=== PATIENT | male | born 1975 | race Hispanic/Latino ===

== ENCOUNTER 2019-12-15 12:30 | Outpatient (RCR) | payer BC, SELFPAY ==
[2019-11-17 14:05] VITALS: BMI 39.9
== END 2020-02-01 10:28 | disposition home or self-care (01) ==
LOC: ANHWOC 12:30
PROVIDERS: PCP Internal Medicine; Visit Provider Orthopaedic Surgery
DX: T81.49XD Infection following a procedure, other surgical site, subsequent encounter (principal)
CPT/HCPCS: 99211; 99212; A9270; G0463

== ENCOUNTER 2021-01-03 22:15 | Emergency (ER) | payer BC, SELFPAY ==
--- NOTE | ~2021-01-03 | XR_ITS ---
EXAMINATION: XR abdomen obstructive series DATE: 01/04/2021 01:06 INDICATION: Right abdominal pain. TECHNIQUE: Upright and supine views of the abdomen were obtained. COMPARISON: Abdomen radiographs 08/31/2005 FINDINGS: There are no dilated loops of bowel. There is a moderate volume of stool in the colon. No f ree intraperitoneal gas. There are changes of anterior fusion procedure in lumbosacral spine. Epidura l electrodes are noted. A calcification in right pelvis is likely a phlebolith. IMPRESSION: 1. Normal bowel gas pattern. Reviewed, dictated and finalized at location A. OR C SOFTWARE DEVELOPER
[2021-01-03 22:16] VITALS: BP 195/100; PULSE 81; RESP 16; TEMP 36.2; O2SAT 100
[2021-01-03 22:34] LABS: Basophils Absolute Auto 0.1 K/mm3 (0.0-0.1); Eosinophils Absolute Auto 0.2 K/mm3 (0-0.3); Eosinophils Percent Auto 3.1 % (0-4.4); Hematocrit 41.9 % (42.0-52.0); Hemoglobin 13.8 g/dL (14.0-18.0); Immature Granulocyte Absolute 0.01 K/mm3 (0.00-0.031); Immature Granulocyte Percent A 0.2 % (0-0.5); Lymphocytes Absolute Auto 2.41 K/mm3 (0.9-3.2); Lymphocytes Percent Auto 47.3 % (18.3-44.2); Mean Corpuscular HGB Conc 32.9 g/dl (32-36); Mean Corpuscular Hemoglobin 28.6 pg (26-34); Mean Corpuscular Volume 86.9 fl (80-100); Mean Platelet Volume 9.9 fl (7.4-10.4); Monocytes Absolute Auto 0.5 K/mm3 (0.1-0.6); Monocytes Percent Auto 10.6 % (2.6-8.5); Neutrophils Absolute Auto 1.9 K/mm3 (1.3-6.7); Neutrophils Percent Auto 37.8 % (45.5-73.1); Platelet Count Result 248 k/mm3 (150-375); Red Blood Count 4.82 M/mm3 (4.6-6.20); Red Cell Distribution Width 13.2 % (11.5-14.5); White Blood Count 5.1 K/mm3 (4.5-10.0)
[2021-01-03 22:39] LABS: Add Urine Microscopic? NO; Appearance Urine Clear (Clear); Bilirubin Urine Negative (Negative); Blood Urine Negative (Negative); Color Urine Yellow (Yellow); Glucose Urine UA Negative (Negative); Ketones Urine Negative (Negative); Leukocyte Esterase Ur Negative LEU/UL (Negative); Nitrate Urine Negative (Negative); Protein Urine Negative (Negative); Specific Grav Ur 1.016 (1.001-1.035); Urobilinogen Urine Negative mg/dL (<2.0)
[2021-01-03 22:48] LABS: Alanine Aminotransferase 38 U/L (4-50); Albumin Level 4.4 g/dL (3.5-5.1); Alkaline Phosphatase 96 U/L (38-126); Anion Gap 6 mmol/L (8-16); Aspartate Amino Transferase 39 U/L (17-59); Bilirubin,Total 0.3 mg/dL (0.2-1.3); Blood Urea Nitrogen 14 mg/dL (9-20); Calcium 9.5 mg/dL (8.4-10.2); Carbon Dioxide 30 mmol/L (22-30); Chloride 104 mmol/L (98-107); Estimated Glomerular Filt Rate > 60; Glucose 122 mg/dL (75-110); Lipase 194 U/L (23-300); Potassium 4.3 mmol/L (3.4-5.0); Sodium 140 mmol/L (137-145)
[2021-01-04 00:26] VITALS: BP 127/78; PULSE 85; RESP 18; O2SAT 95
--- NOTE | 2021-01-04 01:32 | ED.ABDPAIN ---
HPI - Abdominal Pain General Chief Complaint: Abdominal Pain Stated Complaint: right abd pain Time Seen by Provider: 01/04/21 00:33 History of Present Illness HPI narrative: Patient is a 45-year-old male who presents ER with abdominal pain. Ongoing for last 3 days mainly in the evenings. The last 3 to 4 hours. Tonight it was associated with some nausea and vomiting. Unsure if it is associate with food. Denies fevers or chills or sweats. Patient is on chronic narcotic pain medications for chronic pain. He takes Lyrica and oxycodone. He has an implanted spinal stimulator. Reports issues with constipation in the past but this feels different. Pain seems to be in the right upper quadrant. It radiated into his chest. Cannot describe the quality. Related Data Home Medications Medication Instructions Recorded Confirmed esomeprazole magnesium 20 mg 40 mg PO DAILY 09/17/19 10/25/20 capsule,delayed release amitriptyline 25 mg tablet 50 mg PO HS 09/27/19 10/25/20 cyclobenzaprine 10 mg tablet 10 mg PO BID PRN tablet 09/27/19 10/25/20 pregabalin 150 mg capsule 150 mg PO BID 09/27/19 10/25/20 oxycodone 10 mg tablet 5 mg PO TID tablet 10/25/20 10/25/20 Allergies Allergy/AdvReac Type Severity Reaction Status Date / Time pravastatin Allergy Severe KIDNEY Verified 01/04/21 00:29 FAILURE Bjqntec-Vaz-Hzv Reductase Allergy Severe KIDNEY Verified 01/04/21 00:29 Inhibitor FAILURE Review of Systems Review of Systems: All systems reviewed & are unremarkable except as noted in HPI and below Constitutional: Constitutional: Denies chills, Denies fever(s) and Denies weakness ENT: Denies nasal congestion and Denies sore throat Cardiovascular: Cardiovascular: Denies chest pain, Denies rapid heart rate and Denies radiating jaw, neck or arm pain Gastrointestinal: Gastrointestinal: Reports abdominal pain, Reports constipation, Reports nausea and Reports vomiting [facility] Past Medical History Medical History (Updated 01/04/21 @ 01:34 by Setphan Rosario MD) Acute renal failure history of in 2017 due to dehydration and pravastatin. Resolved Anxiety Bronchitis Chronic prescription opiate use CTS (carpal tunnel syndrome) GERD (gastroesophageal reflux disease) High blood pressure Hyperlipidemia Palpitations Shoulder pain Spinal cord stimulator status Trial: 01/2017 Implant: 06/2017 Surgical History Surgical History H/O bone graft H/O carpal tunnel repair H/O hernia repair 09/30/2018 H/O spinal fusion History of appendectomy History of gastric bypass History of total knee arthroplasty Status post total shoulder arthroplasty Family History Family History Father Cerebrovascular accident Family history of diabetes mellitus in first degree relative Acute myocardial infarction Hypertension Family history of kidney disease Family history of coronary artery disease Diabetes mellitus Renal disease Sibling Family history of diabetes mellitus in first degree relative Mother Patient's mother is in good health, Onset Age: 62 Grandparent Family history of malignant neoplasm Son Asthma Other Family history of arthritis Family history of cardiovascular disease Social History Social History Social History: Patient does not currently drink or smoke. He denies any drug use. He is disabled due to his back pain. 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 He is independent Smoking status: Never smoker Alcohol intake: never Substance use: never Gender identity (if verbalized by the patient): Male Spiritual care concerns: No Agree to blood products: Yes Exam Narrative: Exam Narrative: GENERAL: Well-appearing, well-nourished, and in no acute distress. HEAD: Normocephalic, atraumatic. ENT: Mucous m
[2021-01-04 01:58] VITALS: BP 124/82; PULSE 81; RESP 16; O2SAT 95
== END 2021-01-04 01:59 | disposition home or self-care (01) ==
PROVIDERS: Emergency Provider Emergency Medicine; PCP Internal Medicine
DX: K59.00 Constipation, unspecified (principal); F41.9 Anxiety disorder, unspecified; K21.9 Gastro-esophageal reflux disease without esophagitis; I10 Essential (primary) hypertension; E78.5 Hyperlipidemia, unspecified; Z98.1 Arthrodesis status; Z98.84 Bariatric surgery status
CPT/HCPCS: 36415; 74019; 80053; 81003; 83690; 85025; 99283

== ENCOUNTER 2021-01-10 06:52 | Outpatient (CLI) | payer BC, SELFPAY ==
--- NOTE | ~2021-01-10 | US_ITS ---
EXAMINATION: US right upper quadrant DATE: 01/10/2021 07:32 INDICATION: Right upper quadrant pain TECHNIQUE: Multiple grayscale and Doppler ultrasound images of the abdomen were obtained. COMPARISON: 06/12/2016 FINDINGS: Bowel gas obscures visualization of the pancreas. The visualized portions of the pancreas a re unremarkable. The liver demonstrates increased echogenicity, heterogenous echotexture, and decreas ed through transmission. No surface nodularity. Normal hepatopetal flow in the main portal vein. Slud ge is present in the gallbladder. There is no gallbladder wall thickening or pericholecystic fluid. T he normal common bile duct measures 4 mm. Sonographic Mckeon sign is positive. IMPRESSION: 1. Gallbladder sludge and positive sonographic Mckeon sign without additional features of acute paulino cystitis. Consider nuclear hepatobiliary scan if there is high clinical suspicion. 2. Diffuse hepatic steatosis. Reviewed, dictated and finalized at location A. TING ROLLER HANDLER IMPRESSION: 1. Gallbladder sludge and positive sonographic Mckeon sign without additional f eatures of acute cholecystitis. Consider nuclear hepatobiliary scan if there is high clinical suspicion. 2. Diffuse hepatic steatosis.
== END 2021-01-10 06:53 | disposition home or self-care (01) ==
PROVIDERS: PCP Internal Medicine; Visit Provider Clinical Nurse Specialist
DX: R10.11 Right upper quadrant pain (principal); K76.0 Fatty (change of) liver, not elsewhere classified
CPT/HCPCS: 76705

== ENCOUNTER 2021-01-11 11:49 | Outpatient (CLI) | payer BC, SELFPAY ==
--- NOTE | ~2021-01-11 | NM_ITS ---
EXAMINATION: NM hepatobiliary wo pharm DATE: 01/11/2021 15:33 INTERNAL CONTROL CONSULTANT INDICATION: Right upper quadrant pain TECHNIQUE: 4.8 millicuries Choletec was administered intravenously. Scintigraphic images of the abdo men were obtained for one hour. As the gallbladder was not seen at one hour, four hour delayed image s were obtained. Gallbladder ejection fraction could not be calculated by the technologist since the gallbladder was not seen by a one hour and cholecystokinin was not administered. COMPARISON: 06/19/2016 FINDINGS: There is homogeneous tracer uptake by the liver. Common bile duct activity is seen at 15 m inutes. There is radiotracer activity in the small bowel loops by 15 minutes. Gallbladder activity wa s not seen by one hour. As the gallbladder was not seen by one hour and therefore cholecystokinin was not administered, the gallbladder ejection fraction could not be calculated. IMPRESSION: 1. Delayed visualization of the gallbladder at four hours after initial radiotracer administration, consistent with chronic cholecystitis. Correlate with patient's symptoms. The common bile duct is p atent. 2. As the gallbladder was not seen by one hour and therefore cholecystokinin was not administered, t he gallbladder ejection fraction could not be calculated. Reviewed, dictated and finalized at location A. RNAL CONTROL CONSULTANT IMPRESSION: 1. Delayed visualization of the gallbladder at four hours after initial radiot racer administration, consistent with chronic cholecystitis. Correlate with pa tient's symptoms. The common bile duct is patent. 2. As the gallbladder was not seen by one hour and therefore cholecystokinin w as not administered, the gallbladder ejection fraction could not be calculated.
== END 2021-01-11 11:50 | disposition home or self-care (01) ==
PROVIDERS: PCP Internal Medicine; Visit Provider Internal Medicine
DX: R10.11 Right upper quadrant pain (principal)
CPT/HCPCS: 78226; A9537

== ENCOUNTER 2021-02-02 09:55 | Outpatient (CLI) | payer BC, SELFPAY ==
--- NOTE | 2021-02-02 11:14 | ECG_ITS ---
Measurements Intervals [place] Rate: 75 P: 49 FL: 164 QRS: 11 QRSD: 112 T: 18 QT: 363 QTc: 407 Interpretive Statements SINUS RHYTHM INTRAVENTRICULAR CONDUCTION DELAY DELAYED PRECORDIAL R/S TRANSITION INFERIOR INFARCT, AGE INDETERMINATE ABNORMAL ECG Electronically Signed On 02-02-2021 12:11:09 CDT by Gian Lucero D.O.
[2021-02-02 11:46] LABS: Alanine Aminotransferase 42 U/L (4-50); Albumin Level 4.4 g/dL (3.5-5.1); Alkaline Phosphatase 74 U/L (38-126); Amylase 75 U/L (30-110); Aspartate Amino Transferase 42 U/L (17-59); Bilirubin,Total 0.2 mg/dL (0.2-1.3); Lipase 120 U/L (23-300)
== END 2021-02-02 09:56 | disposition home or self-care (01) ==
LOC: ANHSURGERY 09:57
PROVIDERS: PCP Internal Medicine; Visit Provider Surgery
DX: K80.10 Calculus of gallbladder with chronic cholecystitis without obstruction (principal); I10 Essential (primary) hypertension; R94.31 Abnormal electrocardiogram [ECG] [EKG]
CPT/HCPCS: 36415; 80076; 82150; 83690; 86850; 86900; 86901; 93005

== ENCOUNTER → 2021-02-05 00:13 | Outpatient (CLI) | payer BC, SELFPAY ==
[2021-02-05 19:29] LABS: SARS-CoV-2 RNA PCR Negative
== END ==
PROVIDERS: PCP Internal Medicine; Visit Provider Surgery
DX: Z01.812 Encounter for preprocedural laboratory examination (principal); Z20.822 Contact with and (suspected) exposure to COVID-19
CPT/HCPCS: C9803; U0003; U0005

== ENCOUNTER 2021-02-08 01:33 | Day surgery (SDC) | payer BC, SELFPAY ==
[2021-02-02 10:18] VITALS: BP 155/85; PULSE 83; RESP 16; TEMP 37.3; O2SAT 97; BMI 41.5
--- NOTE | 2021-02-02 11:14 | PC.NURSE ---
[id number] FOR SIGNING OF SURGICAL CONSENT AND BLOOD CONSENT. PT GIVEN OPPORTUNITY FOR QUESTIONS RE: CONSENT, PMH AND PRE-OP INSTRUCTIONS. NO FURTHER QUESTIONS RECEIVED. PT'S PRESENT FOR INTERVIEW, SHE SPEAKS FLUENT INDONESIAN AND ALSO HAS NO FURTHER QUESTIONS.
[2021-02-08] VITALS (9 sets, daily range): BP systolic 116–154; BP diastolic 66–95; PULSE 76–93; RESP 12–18; TEMP 36–36.4; O2SAT 97–100
--- NOTE | 2021-02-08 09:29 | WPDHPUPDATE1 ---
History and Physical Update Update Date/Time: 02/08/21 09:29 History and Physical has been reviewed, including an updated exam of the patient. There are NO changes in the patient's condition. Risks, benefits, and alternatives have been discussed and questions answered. Patient agrees to proceed with procedure.
[2021-02-08] MEDS: LACTATED RINGERS 1,000 ML 30 ML IV CONT ×2 (10:16→11:57)
[2021-02-08] MEDS: KETOROLAC 15 MG/ML VIAL (*BKC) IV PUSH (10:16)
[2021-02-08] MEDS: ACETAMINOPHEN 500 MG TABLET 1000 MG PO (10:16)
--- NOTE | 2021-02-08 10:18 | WPDANESEPPF ---
Anes - Initial Pre Proc Eval Procedure: Operation Date: 02/08/21 11:30 Proposed Procedures p Laparoscopic Cholecystectomy - Kolton Jara MD Date/Time: 02/08/21 10:18 Surgeon: Kolton Jara MD Pre Op Diagnosis: chronic cholecystitis with stones Patient Data Age: 45 Gender: M Height: 5 ft 9 in Weight: 127.7 kg Last Vital Signs Temp 37.3 C 02/02/21 10:18 Pulse 83 02/02/21 10:18 Resp 16 02/02/21 10:18 BP 155/85 H 02/02/21 10:18 Pulse Ox 97 02/02/21 10:18 Allergies Allergy/AdvReac Type Severity Reaction Status Date / Time pravastatin Allergy Severe KIDNEY Verified 02/02/21 10:05 FAILURE Cuhmnpl-Fbt-Rej Reductase Allergy Severe KIDNEY Verified 02/02/21 10:05 Inhibitor FAILURE Home Medications Medication Instructions Recorded Confirmed Type cyclobenzaprine 10 mg tablet 10 mg PO TID PRN tablet 09/27/19 02/02/21 History pregabalin 150 mg capsule 150 mg PO BID 09/27/19 02/02/21 History oxycodone 10 mg tablet 10 mg PO TID tablet 10/25/20 02/02/21 History esomeprazole magnesium 40 mg 40 mg PO DAILY #90 cap 11/22/20 02/02/21 Rx capsule,delayed release buspirone 10 mg tablet 10 mg PO BID #180 tablet 12/12/20 02/02/21 Rx amitriptyline 50 mg PO HS 02/02/21 02/02/21 History lisinopril 40 mg PO QAM 02/02/21 02/02/21 History naldemedine [Symproic] 0.2 mg PO DAILY 02/02/21 02/02/21 History polyethylene glycol 3350 [Miralax] 17 g PO DAILY PRN 02/02/21 02/02/21 History Patient hx anesthesia problems: none Family hx anesthesia problems: none PMFSH Past Medical History Medical History Acute renal failure history of in 2017 due to dehydration and pravastatin. Resolved Anxiety Bronchitis Chronic prescription opiate use CTS (carpal tunnel syndrome) GERD (gastroesophageal reflux disease) High blood pressure Hyperlipidemia Palpitations Shoulder pain Spinal cord stimulator status Trial: 01/2017 Implant: 06/2017 Surgical History Surgical History H/O bone graft H/O carpal tunnel repair H/O hernia repair 09/30/2018 H/O spinal fusion History of appendectomy History of gastric bypass History of total knee arthroplasty S/P insertion of spinal cord stimulator February 2017 Status post total shoulder arthroplasty Family History Family History Father Cerebrovascular accident Family history of diabetes mellitus in first degree relative Acute myocardial infarction Hypertension Family history of kidney disease Family history of coronary artery disease Diabetes mellitus Renal disease Sibling Family history of diabetes mellitus in first degree relative Mother Patient's mother is in good health, Onset Age: 62 Grandparent Family history of malignant neoplasm Son Asthma Other Family history of arthritis Family history of cardiovascular disease Social History Social History Social History: Patient does not currently drink or smoke. He denies any drug use. He is disabled due to his back pain. 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 He is independent Smoking status: Never smoker Alcohol intake: never Alcohol use details: DRANK ALCOHOL IN PAST, STOPPED 2009 Substance use: never Living arrangements: with family Additional living arrangements comments: WITH AND CHILDREN Gender identity (if verbalized by the patient): Male Spiritual care concerns: No Agree to blood products: Yes Anes - Eval Final PreProcedure Day of Procedure 02/08/21 10:18 Patient weight: morbidly obese Heart: regular rate and rhythm Lungs: clear to auscultation Airway: Mallampati scale class II Neurological: alert and oriented Last oral intake: >/= 8 hours ASA classification: III Emergent
[2021-02-08] MEDS: ceFAZolin 2 GM/D5W 50 ML 2 GM/50 ML BAG IVPB (10:36)
[2021-02-08] MEDS: BUPIVACAINE/EPINEPHRINE 0.5% 30 ML VIAL INFILTRATE (11:15)
--- NOTE | 2021-02-08 11:49 | PM.PROC ---
Procedure Note - Detailed Date of procedure: 02/08/21 Pre-op diagnosis: chronic cholecystitis Chronic cholecystitis Post-op diagnosis: same Procedure performed: Laparoscopic cholecystectomy Description of procedure: The patient was taken to surgery and induced into general anesthesia. The abdomen was prepped and draped. Trocars were placed in the usual fashion using 0.5% Marcaine with epinephrine and applied Medical optical trocars. A 5 millimeter camera was used. The gallbladder was decompressed with a laparoscopic aspirator. Very thickened bile was present in the gallbladder. The cholecystotomy was closed with a Vicryl endo-loop. The gallbladder was retracted anterosuperiorly. Adhesions to the gallbladder were taken down so that the cholecystohepatic triangle was exposed. Traction was placed on the infundibulum. The patient has hepatic steatosis and I was unable to retract the gallbladder anterosuperiorly to any significant extent. We placed a 5th trocar in the left mid abdomen. This was another 5 mm port. A laparoscopic Kittner was placed here to retract the duodenum posteriorly and allow better exposure of the cholecystohepatic triangle. The cystic duct and cystic artery were dissected out very clearly. The gallbladder was dissected off the liver at its lower 3rd. Critical view was achieved. We securely clipped and divided the cystic duct and cystic artery. The gallbladder was then further retracted so that the peritoneal attachments to the liver could be divided. Near the fundus of the gallbladder, the gallbladder was significantly intrahepatic and during the dissection the gallbladder was entered. Dark bile came out but was suctioned away quickly. The gallbladder was decompressed further with the suction. We then continued on with the dissection of the fundus of the gallbladder from the liver. No bleeding occurred during this dissection. Once the gallbladder was freed entirely, it was placed in an Endo-Catch bag and retrieved through the 10 11 epigastric trocar site. The epigastric trocar was then replaced. We reviewed the right upper quadrant. It was irrigated and suctioned. This process was repeated several times until the irrigant all looked quite clear with no evidence of bile staining. All looked good with no evidence of bleeding or bile leakage. We evacuated CO2 and removed the trocar sleeves. The fascia at the epigastric trocar site was closed with 0 Vicryl suture. Skin wounds were closed with subcuticular 4 O Monocryl skin suture. The wounds were dressed with Exofin surgical adhesive. Patient was awakened and taken to recovery in good condition. Sponge and needle counts were correct x2. Anesthesia: GETA and local (0.5% Marcaine with epinephrine) Surgeon: Kolton Jara MD [facility] Counselor: Chanda YI Estimated blood loss (mL): 5 Drains: No Packing: No Pathology: yes (Gallbladder) Complications: None Condition: stable Disposition: PACU Findings: Chronic inflammation with very thickened bile. No Gallstones were noted. No biliary ductal dilatation. Hepatic steatosis was evident.
== END 2021-02-08 13:57 | disposition home or self-care (01) ==
PROVIDERS: PCP Internal Medicine; Visit Provider Surgery
PROC: 0FT44ZZ Resection of Gallbladder, Percutaneous Endoscopic Approach (ICD-10-PCS; CPT 47562; principal; 2021-02-08 11:30)
DX: K81.1 Chronic cholecystitis (principal); I10 Essential (primary) hypertension; E78.5 Hyperlipidemia, unspecified; K21.9 Gastro-esophageal reflux disease without esophagitis; F41.9 Anxiety disorder, unspecified; Z79.891 Long term (current) use of opiate analgesic; Z98.1 Arthrodesis status; Z98.84 Bariatric surgery status; E66.01 Morbid (severe) obesity due to excess calories; Z68.39 Body mass index [BMI] 39.0-39.9, adult
CPT/HCPCS: 47562; 88304; A9270; C1713; J0330; J0690; J1100; J1170; J1885; J2250; J2405; J2704; J2710; J3010; J7120

== ENCOUNTER 2021-09-04 09:10 | Outpatient (CLI) | payer BC, SELFPAY ==
--- NOTE | 2021-09-04 11:30 | NEURO_ITS ---
Impression: # Complains of 3rd to 5th finger numbness. # No Carpal Tunnel Syndrome. # No ulnar neuropathy. # Normal nerve conduction study. # Normal needle/EMG exam. Nerve Conduction Studies Anti Sensory Summary Table Stim Site NR Peak (ms) P-T Amp (?V) Site1 Site2 Delta-P (ms) Dist (cm) Dariel (m/s) Left Median Anti Sensory (2-3nd Digit) Wrist 2.9 45.9 Wrist 2-3nd Digit 2.9 14.0 48 Wrist 2.8 54.0 Wrist 2-3nd Digit 2.9 14.0 48 Right Median Anti Sensory (2-3nd Digit) Wrist 3.0 46.7 Wrist 2-3nd Digit 3.0 14.0 47 Wrist 3.1 49.3 Wrist 2-3nd Digit 3.0 14.0 47 Left Radial Anti Sensory (Base 1st Digit) Wrist 1.9 27.9 Wrist Base 1st Digit 1.9 0.0 Right Radial Anti Sensory (Base 1st Digit) Wrist 2.4 17.1 Wrist Base 1st Digit 2.4 0.0 Left Ulnar Anti Sensory (5th Digit) Wrist 2.7 46.0 Wrist 5th Digit 2.7 14.0 52 Right Ulnar Anti Sensory (5th Digit) Wrist 2.8 77.7 Wrist 5th Digit 2.8 14.0 50 Motor Summary Table Stim Site NR Onset (ms) O-P Amp (mV) Site1 Site2 Delta-0 (ms) Dist (cm) Dariel (m/s) Left Median Motor (Abd Poll Brev) Wrist 2.7 3.5 Elbow Wrist 5.7 31.0 54 Elbow 8.4 2.5 Right Median Motor (Abd Poll Brev) Wrist 3.0 7.7 Elbow Wrist 5.5 30.0 55 Elbow 8.5 7.2 Left Ulnar Motor (Abd Dig Minimi) Wrist 3.0 7.4 A Elbow Wrist 5.7 31.0 54 A Elbow 8.7 5.5 Right Ulnar Motor (Abd Dig Minimi) Wrist 3.0 8.4 A Elbow Wrist 5.4 30.0 56 A Elbow 8.4 7.6 F Wave Studies NR F-Lat (ms) L-R F-Lat (ms) Left Median (Mrkrs) (Abd Poll Brev) 31.09 1.02 Right Median (Mrkrs) (Abd Poll Brev) 30.08 1.02 Left Ulnar (Mrkrs) (Abd Dig Min) 30.94 0.46 Right Ulnar (Mrkrs) (Abd Dig Min) 31.41 0.46 EMG Side Muscle Nerve Root Ins Act Fibs Amp Dur Recrt Comment Right 1stDorInt Ulnar C8-T1 Nml Nml Nml Nml Nml Right Ext Indicis Radial (Post Int) C7-8 Nml Nml Nml Nml Nml Right Ext Digitorum Radial (Post Int) C7-8 Nml Nml Nml Nml Nml Right BrachioRad Radial C5-6 Nml Nml Nml Nml Nml Right PronatorTeres Median C6-7 Nml Nml Nml Nml Nml Right Abd Poll Brev Median C8-T1 Nml Nml Nml Nml Nml Left 1stDorInt Ulnar C8-T1 Nml Nml Nml Nml Nml Left Ext Indicis Radial (Post Int) C7-8 Nml Nml Nml Nml Nml Left Ext Digitorum Radial (Post Int) C7-8 Nml Nml Nml Nml Nml Left BrachioRad Radial C5-6 Nml Nml Nml Nml Nml Left PronatorTeres Median C6-7 Nml Nml Nml Nml Nml Left Abd Poll Brev Median C8-T1 Nml Nml Nml Nml Nml MTDD
== END 2021-09-04 09:11 | disposition home or self-care (01) ==
LOC: ANHNEURO 09:12
PROVIDERS: PCP Internal Medicine; Visit Provider Nurse Practitioner
DX: G56.20 Lesion of ulnar nerve, unspecified upper limb (principal)
CPT/HCPCS: 95886; 95911

== ENCOUNTER 2022-12-18 12:11 | Emergency (ER) | payer BC, SELFPAY ==
[2022-12-18 12:21] VITALS: BP 123/81; PULSE 84; RESP 16; TEMP 36.8; O2SAT 99
--- NOTE | 2022-12-18 12:35 | ED.EAR ---
HPI - Ear Problem General Chief complaint: Ear Stated complaint: Right Earb Irritation Time Seen by Provider: 12/18/22 12:35 Source: patient Mode of arrival: ambulatory Limitations: no limitations History of Present Illness HPI Narrative: 47-year-old male presents with complaint of decreased hearing to right ear. States that this started last week while he was on his cruise. States that of some water got to his ear, he expressed pain for approximately 2 hours. Pain resolved and that he just could not hear. History of tubes to TMs to help with pressure when flying. He is unsure if tubes are still in place. He has an appointment with his ENT specialist in 1 month. Afebrile. All systems reviewed and negative except as noted above. Related Data Home Medications Medication Instructions Recorded Confirmed cyclobenzaprine 10 mg tablet 10 mg PO TID PRN Spasms 09/27/19 12/18/22 pregabalin 150 mg capsule (Lyrica) 150 mg PO BID 09/27/19 12/18/22 amitriptyline 50 mg tablet 50 mg PO HS 02/02/21 12/18/22 oxycodone 10 mg tablet 10 mg PO TID 07/02/21 12/18/22 venlafaxine 37.5 mg 37.5 mg PO DAILY 12/18/22 12/18/22 capsule,extended release 24 hr Allergies Allergy/AdvReac Type Severity Reaction Status Date / Time pravastatin Allergy Severe KIDNEY Verified 12/18/22 12:20 FAILURE Ohnxgew-IDM-BvC Reductase Allergy Severe KIDNEY Verified 12/18/22 12:20 Inhibitor FAILURE [Jvapkya-Hme-Egz Reductase Inhibitor] Review of Systems Review of Systems: CONSTITUTIONAL: Denies fever, chills, or sweats. EYES: Denies visual changes, redness, or discharge. ENT: Denies rhinorrhea, congestion, sore throat, or otalgia. Reports decreased hearing right ear. CARDIOVASCULAR: Denies chest pain, palpitations, or edema. RESPIRATORY: Denies cough or dyspnea. GASTROINTESTINAL: Denies abdominal pain, nausea, vomiting, or diarrhea. GENITOURINARY: Denies dysuria or hematuria. SKIN: Denies rash or itching. MUSCULOSKELETAL: Denies back pain, joint pain, or myalgia. NEUROLOGIC: Denies headache, numbness, or weakness. PSYCHIATRIC: Denies anxiety or depression. All other systems reviewed are negative, except as documented in HPI. [facility] Past Medical History Medical History Acute renal failure history of in 2017 due to dehydration and pravastatin. Resolved Anxiety Bronchitis Cholecystectomy planned 02/08/2021 Chronic prescription opiate use CTS (carpal tunnel syndrome) GERD (gastroesophageal reflux disease) High blood pressure Hyperlipidemia Palpitations Shoulder pain Spinal cord stimulator status Trial: 01/2017 Implant: 06/2017 Surgical History Surgical History H/O bone graft H/O carpal tunnel repair H/O hernia repair 09/30/2018 H/O rotator cuff surgery H/O spinal fusion History of appendectomy History of gastric bypass History of total knee arthroplasty Hx laparoscopic cholecystectomy S/P insertion of spinal cord stimulator February 2017 Status post total shoulder arthroplasty Family History Family History Father Cerebrovascular accident Family history of diabetes mellitus in first degree relative Acute myocardial infarction Hypertension Family history of kidney disease Family history of coronary artery disease Diabetes mellitus Renal disease Sibling Family history of diabetes mellitus in first degree relative Mother Patient's mother is in good health, Onset Age: 62 Grandparent Family history of malignant neoplasm Son Asthma Other Family history of arthritis Family history of cardiovascular disease Social History Social History Social History: He denies any drug use. He is disabled due to his back pain. 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
== END 2022-12-18 12:59 | disposition home or self-care (01) ==
PROVIDERS: Emergency Provider Nurse Practitioner Family; PCP Internal Medicine
DX: H66.91 Otitis media, unspecified, right ear (principal); H61.21 Impacted cerumen, right ear; K21.9 Gastro-esophageal reflux disease without esophagitis; I10 Essential (primary) hypertension; E78.5 Hyperlipidemia, unspecified; Z96.82 Presence of neurostimulator; Z98.84 Bariatric surgery status
CPT/HCPCS: 69209; 99213; G0463

== ENCOUNTER 2024-02-13 08:43 | Outpatient (CLI) | payer BC, SELFPAY ==
--- NOTE | ~2024-02-13 | CT_ITS ---
EXAMINATION: CT abdomen pelvis wo con DATE: 02/13/2024 09:06 INDICATION: Nontraumatic separation/diastases of muscle. TECHNIQUE: Computed tomography (CT) of the abdomen and pelvis was performed without intravenous contr ast. Automated exposure control and iterative reconstruction technique were employed. The dose-length product was 1205.34 mGy-cm. COMPARISON: None FINDINGS: Discoid atelectasis at the left lower lobe and lingula. Heart size is normal. No pericardial or pleur al effusion. Cholecystectomy clips at the gallbladder fossa. Diffuse hepatic steatosis. Spleen, pancr eas, bilateral adrenal glands and kidneys are normal. Bowels including the appendix are normal. Bladd er is normal. No free intraperitoneal gas or fluid. No pathologically enlarged abdominal or pelvic ly mphadenopathy. L4-S1 anterior and posterior spinal fusion with anterior plate and screw fixation. The re is a spinal stimulator power supply in the subcutaneous tissues at the left flank with leads enter ing the lower thoracic central canal at level of T10-T11 and extending beyond the cephalad-most image which is at T8. There is mild diastases recti with up to 5.5 cm separation of the medial margin of t he rectus abdominis muscles at the level of the umbilicus but without evident peripheral bulging of t he fascia. The region of the testis measures approximately 6 cm craniocaudally. IMPRESSION: 1. Mild rectus diastases at the level of the umbilicus without evident ventral bulging of the fascia. 2. Diffuse hepatic steatosis. Reviewed, dictated and finalized at location B.
== END 2024-02-13 08:44 ==
PROVIDERS: PCP Internal Medicine; Visit Provider Surgery
DX: M62.08 Separation of muscle (nontraumatic), other site (principal); K76.0 Fatty (change of) liver, not elsewhere classified
CPT/HCPCS: 74176

== ENCOUNTER 2025-09-13 14:58 | Outpatient (CLI) | payer BC, SELFPAY ==
--- OUTSIDE RECORDS SUMMARY | 2025-01-18 01:30 | XMS_ITS ---
Author Organization [facility] Address [address] [place] [address] [address] [place] [address] Care Team Providers Care Lime Plant Operator Name Role Phone Prashanth Parson Unavailable [phone] REASON FOR VISIT XRAYS Encounters Encounter Location Date Provider Diagnosis [facility] [id number] [place] [address] [address] [place] [address] 01/18/2025 Prashanth Parson Plan Of Treatment Next Appt Details Provider Name:Eli gil, 09/15/2025 09:30:00 AM, [id number] [place] [address], [address], [place], [address], Progress Notes * Kashmir MARTDOB: [birth year] (50 yo M)Acc No.[id number]:01/18/2025 Patient: Kashmir TAN Provider: Jenifer Parson MD :1975 A ge:49 Y S ex:Male Date:01/18/2025 Address:[address] [place], [place] [id number] Subjective: * Chief Complaints: * 1 . XRAYS. * Medical History: Objective: * Vitals: Assessment: Plan: * Treatment: * Billing Information: * Visit Code: * Procedure Codes: * Electronic signature of Farhad Parson MD on 09/13/2025 at 03:07 PM INTERVENTION NURSE Sign off status: Pending * Provider: Jenifer Parson MD Date: 0 01/18/2025 Generated for Marki dwayne/Thao/eTransmitting on: 11/13/2024 03:07 PM INTERVENTION NURSE
--- NOTE | ~2025-09-13 | CT_ITS ---
CT abdomen pelvis wo con INDICATION:M62.08 - Separation of muscle (nontraumatic), other site . COMPARISON: 02/13/2024 TECHNIQUE: Axial 2.5 mm images of the abdomen were obtained without IV or oral contrast. Diagnostic sensitivity is limited due to lack of IV contrast. FINDINGS: The lung bases are clear. The liver parenchyma is unremarkable. No intrahepatic mass or ductal dilatation is evident. The patient has had a cholecystectomy. The pancreas and spleen are normal in appearance. The adrenal glands are symmetric in size. The kidneys are unremarkable. No intrarenal stones are noted. There is no hydronephrosis. Evaluation of the stomach and bowel loops are limited due to lack of oral contrast. There are no bowel obstruction or acute appendicitis. No pneumatosis seen. There is retained stool throughout the colon may represent mild constipation. The bladder and rectum are normal. No free intraperitoneal fluid or air is evident. There is no significant retroperitoneal lymphadenopathy. The aorta, visceral vessels and renal arteries demonstrate normal caliber. Mild rectus diastases at the level of the umbilicus is unchanged. There is anterior disc fusion from L4-L5 through L5-S1. IMPRESSION: No acute abnormality is noted in the abdomen and pelvis. Rectus diastases is stable. All CT scans at this facility are performed using low dose modulation techniques as appropriate to perform exam including the following: automated exposure control; use of iterative reconstruction technique; adjustment of the mA and/or kV according to patient size (this includes techniques or standardized protocols for targeted exams where dose is matched to indication/reason for exam). Reviewed, dictated and finalized at location S. TAILER IMPRESSION: No acute abnormality is noted in the abdomen and pelvis. Rectus diastases is stable. All CT scans at this facility are performed using low dose modulation techniqu es as appropriate to perform exam including the following: automated exposure c ontrol; use of iterative reconstruction technique; adjustment of the mA and/or kV according to patient size (this includes techniques or standardized protocol s for targeted exams where dose is matched to indication/reason for exam).
--- OUTSIDE RECORDS SUMMARY | 2025-09-13 15:07 | XMS_ITS | Patient Health Record ---
Author Organization [facility] Address [address] [place], [place] [id number] Support Name Relationship Address Phone MIKE MART Emergency Contact Unknown JORGE MART SR Guarantor Unknown [phone] Reason For Referral No Information Social History Social History Additional Details Category Social Info Options Details Migrated Social History Migrated Social History History of tobacco use : , Smoking Status : Never smoked Plan Of Treatment No Information Insurance Providers Payer Name Payer Address Payer Phone Subscriber Number Group Number Insured Name Patient Relationship to Insured Coverage Start Date Coverage End Date [facility] [address] [place], [place] [id number] JORGE MART SR Self - patient is the insured
--- OUTSIDE RECORDS SUMMARY | 2025-09-13 15:07 | XMS_ITS | Patient Health Record ---
Author Organization [facility] Address [address] [place] [address] Care Team Providers Care Wave Soldering Machine Operator Name Role Phone Odette Parson Unavailable [phone] Neli PLASENCIA, Eli Unavailable [phone] Indira Pizarro Unavailable [phone] Prashanth Parson Unavailable [phone] Allergies No Known Allergies Results Component Value Reference Range Notes [place] Profil e Reviewed date:08/26/2025 08:29:38 AM Interpretation: Performing Lab:[facility] (CLIA#: [id number]), [address] [place] [address], Director - Marialuisa Roland Notes/Report: Analyzed at [facility] (CLIA#: [id number]) - [address] [place] [address] - Showroom Sales Assistant: Marialuisa Perez Certifying Gas Meter Mechanic: Keith Man (Remote [id number]) These tests were developed and their performance characteristics determined by [facility]. They have not been cleared or approved by the US Food and Drug Administration. Cyclobenzaprine Ur CMP >779 >=10 ng/mL PRN - PRESENT: Test result is consistent and expected with prescribed drug. Oxycodone Ur CMP 1032 >=100 ng/mL COMPLIANT: Test result is consistent and expected with prescribed drug. Pregabalin Ur CMP 14 >=5 mcg/mL COMPLIANT: Test result is consistent and expected with prescribed drug. Venlafaxine Ur CMP >5226 >=5 ng/mL COMPLIANT : Test result is consistent and expected with prescribed drug. BioDetect EXPECTED Test result is consistent with routinely analyzed human urine. 6MAM Ur Ql Cfm <10 >=10 ng/mL NONE DETECTED Amphetamines Ur Ql Cfm <100 >=100 ng/mL NONE DETECTED Benzodiaz Ur Ql Cfm <25 >=25 ng/mL NONE DET ECTED Buprenorphine Ur Ql Cfm <1 >=1 ng/mL NONE DETECTED BZE Ur Ql Cfm <50 >=50 ng/mL NONE DETECTED Fentanyl+Norfentanyl Ur Ql Cfm <5 >=5 ng/mL NONE DETECTED Gabapentin Ur Ql <5 >=5 mcg/mL NONE DETECT ED Carisoprodol+Meprob Ur Ql Scn <200 >=200 ng/mL NONE DETECTED Methadone Ur Ql Cfm <200 >=200 ng/mL NONE DET ECTED Meperidine Ur Ql Cfm <100 >=100 ng/mL NONE DE TECTED Opiates Ur Ql Cfm >=100 >=100 ng/mL POSITIVE Noroxycodone Ur Cfm-mCnc 675 >=100 ng/mL POS ITIVE Oxycodone Ur Cfm-mCnc 357 >=100 ng/mL POSITI VE Pregabalin(Lyrica) Ur Ql Cfm >=5 >=5 mcg/mL POSITIVE Pregabalin Ur Cfm-mCnc 14 >=5 mcg/mL POSIT MAXIMUS Tramadol Ur Ql Cfm <100 >=100 ng/mL NONE DETE CTED Creat Ur-mCnc 48.3 20 - 370 mg/dL NORMAL Creatinine and pH are performed for specimen validity and not diagnostic purposes. pH Ur 6.37 4.5 - 9.0 NORMAL Creatinine and pH are performed for specimen validity and not diagnostic purposes. Alcohol Metabolites Ur Ql Cfm <200 >=200 ng/mL NONE DETECTED Ethyl sulfate Ur Cfm-mCnc <200 >=200 ng/mL NO NE DETECTED Cyclobenzaprine Ur Ql >=10 >=10 ng/mL POSITI VE Cyclobenzaprine Ur Cfm-mCnc >640 >=10 ng/mL POSITIVE Norcyclobenzapr Ur Cfm-mCnc 139 >=10 ng/mL POSITIVE SN Reuptake Inhibitors Ur Ql >=5 >=5 ng/mL POSITIVE Venlafaxine Ur Cfm-mCnc >5000 >=5 ng/mL POSI TIVE ODV Ur Cfm-mCnc 226 >=50 ng/mL POSITIVE Synthetic Stimulants Ur Ql Cfm <1 >=1 ng/mL NONE DETECTED GANG DRILL OPERATOR Not Otherwise Specified Ur Ql Cfm <1 >=1 ng/mL NONE DETECTED Synthetic Cannabinoids Ur Ql Cfm <1 >=1 ng/m L NONE DETECTED Hallucinogens/Dissociatives Ur Ql Cfm <1 >=1 ng/mL NONE DETECTED Timber Estimator Benzodiazepines Ur Ql Cfm <1 >=1 ng/mL NONE DETECTED Timber Estimator Opioids Ur Ql Cfm <1 >=1 ng/mL N ONE DETECTED THC Ur Ql Scn <20 >=20 ng/mL NONE DETECTED [place] Profil e Reviewed date:05/19/2025 08:25:47 AM Interpretation: Performing Lab:[facility] (CLIA#: [id number]), [address] [place] [address], Director - Marialuisa Roland Notes/Report: Analyzed at [facility] (CLIA#: [id number]) - [address] [place] [address] - Showroom Sales Assistant: Marialuisa Perez Certifying Gas Meter Mechanic: Keith Tovar (Remote [id number]) These tests were developed and their performance characteristics determined by [facility]. They have not been cleared or approved by the [place] Food and Drug Administration. Cyclobenzaprine Ur CMP >974 >=10 ng/mL PRN - PRESENT: Test result is consistent and expected with prescribed drug. Oxycodone Ur CMP 3013 >=100 ng/mL COMPLIANT: Test result is consistent and expected with prescribed drug. Pregabalin Ur CMP 26 >=5 mcg/mL COMPLIANT: Test result is consistent and expected with prescribed drug. Venlafaxine Ur CMP >5765 >=5 ng/mL COMPLIANT : Test result is consistent and expected with prescribed drug. BioDetect EXPECTED Test result is consistent with routinely analyzed human urine. 6MAM Ur Ql Cfm <10 >=10 ng/mL NONE DETECTED Amphetamines Ur Ql Cfm <100 >=100 ng/mL NONE DETECTED Benzodiaz Ur Ql Cfm <25 >=25 ng/mL NONE DET ECTED Buprenorphine Ur Ql Cfm <1 >=1 ng/mL NONE DETECTED BZE Ur Ql Cfm <50 >=50 ng/mL NONE DETECTED Fentanyl+Norfentanyl Ur Ql Cfm <5 >=5 ng/mL NONE DETECTED Gabapentin Ur Ql <5 >=5 mcg/mL NONE DETECT ED Carisoprodol+Meprob Ur Ql Scn <200 >=200 ng/mL NONE DETECTED Methadone Ur Ql Cfm <200 >=200 ng/mL NONE DET ECTED Meperidine Ur Ql Cfm <100 >=100 ng/mL NONE DE TECTED Opiates Ur Ql Cfm >=100 >=100 ng/mL POSITIVE Noroxycodone Ur Cfm-mCnc 1814 >=100 ng/mL POS ITIVE Oxycodone Ur Cfm-mCnc 1199 >=100 ng/mL POSITI VE Pregabalin(Lyrica) Ur Ql Cfm >=5 >=5 mcg/mL POSITIVE Pregabalin Ur Cfm-mCnc 26 >=5 mcg/mL POSIT MAXIMUS Tramadol Ur Ql Cfm <100 >=100 ng/mL NONE DETE CTED Creat Ur-mCnc 88.8 20 - 370 mg/dL NORMAL Creatinine and pH are performed for specimen validity and not diagnostic purposes. pH Ur 5.15 4.5 - 9.0 NORMAL Creatinine and pH are performed for specimen validity and not diagnostic purposes. Alcohol Metabolites Ur Ql Cfm <200 >=200 ng/mL NONE DETECTED Ethyl sulfate Ur Cfm-mCnc <200 >=200 ng/mL NO NE DETECTED Cyclobenzaprine Ur Ql >=10 >=10 ng/mL POSITI VE Cyclobenzaprine Ur Cfm-mCnc >640 >=10 ng/mL POSITIVE Norcyclobenzapr Ur Cfm-mCnc 334 >=10 ng/mL POSITIVE SN Reuptake Inhibitors Ur Ql >=5 >=5 ng/mL POSITIVE Venlafaxine Ur Cfm-mCnc >5000 >=5 ng/mL POSI TIVE ODV Ur Cfm-mCnc 765 >=50 ng/mL POSITIVE Synthetic Stimulants Ur Ql Cfm <1 >=1 ng/mL NONE DETECTED GANG DRILL OPERATOR Not Otherwise Specified Ur Ql Cfm <1 >=1 ng/mL NONE DETECTED Synthetic Cannabinoids Ur Ql Cfm <1 >=1 ng/m L NONE DETECTED Hallucinogens/Dissociatives Ur Ql Cfm <1 >=1 ng/mL NONE DETECTED Timber Estimator Benzodiazepines Ur Ql Cfm <1 >=1 ng/mL NONE DETECTED Timber Estimator Opioids Ur Ql Cfm <1 >=1 ng/mL N ONE DETECTED THC Ur Ql Scn <20 >=20 ng/mL NONE DETECTED [facility] [employer] [facility] Profil e Reviewed date:02/28/2025 07:24:39 AM Interpretation: Performing Lab:[facility] (CLIA#: [id number]), [address] [place] [address], Director - Marialuisa Roland Notes/Report: Analyzed at [facility] (CLIA#: [id number]) - [address] [place] [address], [place] [address] - Showroom Sales Assistant: Marialuisa Perez These tests were developed and their performance characteristics determined by [facility]. They have not been cleared or approved by the [place] Food and Drug Administration. Certifying Gas Meter Mechanic: Paty Villarreal (Remote [id number]) Venlafaxine Ur CMP >5212 >=5 ng/mL COMPLIANT : Test result is consistent and expected with prescribed drug. Cyclobenzaprine Ur CMP >1159 >=10 ng/mL PRN - PRESENT: Test result is consistent and expected with prescribed drug. Pregabalin Ur CMP 21 >=5 mcg/mL COMPLIANT: Test result is consistent and expected with prescribed drug. Oxycodone Ur CMP 1747 >=100 ng/mL COMPLIANT: Test result is consistent and expected with prescribed drug. BioDetect EXPECTED Test result is consistent with routinely analyzed human urine. 6MAM Ur Ql Cfm <10 >=10 ng/mL NONE DETECTED Amphetamines Ur Ql Cfm <100 >=100 ng/mL NONE DETECTED Benzodiaz Ur Ql Cfm <50 >=50 ng/mL NONE DET ECTED Buprenorphine Ur Ql Cfm <1 >=1 ng/mL NONE DETECTED BZE Ur Ql Cfm <50 >=50 ng/mL NONE DETECTED Fentanyl+Norfentanyl Ur Ql Cfm <5 >=5 ng/mL NONE DETECTED Gabapentin Ur Ql <5 >=5 mcg/mL NONE DETECT ED Carisoprodol+Meprob Ur Ql Scn <200 >=200 ng/mL NONE DETECTED Methadone Ur Ql Cfm <200 >=200 ng/mL NONE DET ECTED Meperidine Ur Ql Cfm <100 >=100 ng/mL NONE DE TECTED Opiates Ur Ql Cfm >=100 >=100 ng/mL POSITIVE Noroxycodone Ur Cfm-mCnc 965 >=100 ng/mL POS ITIVE Oxycodone Ur Cfm-mCnc 782 >=100 ng/mL POSITI VE Pregabalin(Lyrica) Ur Ql Cfm >=5 >=5 mcg/mL POSITIVE Pregabalin Ur Cfm-mCnc 21 >=5 mcg/mL POSIT MAXIMUS Tramadol Ur Ql Cfm <100 >=100 ng/mL NONE DETE CTED Creat Ur-mCnc 49.8 20 - 370 mg/dL NORMAL Creatinine and pH are performed for specimen validity and not diagnostic purposes. pH Ur 5.06 4.5 - 9.0 NORMAL Creatinine and pH are performed for specimen validity and not diagnostic purposes. Alcohol Metabolites Ur Ql Cfm <200 >=200 ng/mL NONE DETECTED Ethyl sulfate Ur Cfm-mCnc <200 >=200 ng/mL NO NE DETECTED Cyclobenzaprine Ur Ql >=10 >=10 ng/mL POSITI VE Cyclobenzaprine Ur Cfm-mCnc >640 >=10 ng/mL POSITIVE Norcyclobenzapr Ur Cfm-mCnc 519 >=10 ng/mL POSITIVE SN Reuptake Inhibitors Ur Ql >=5 >=5 ng/mL POSITIVE Venlafaxine Ur Cfm-mCnc >5000 >=5 ng/mL POSI TIVE ODV Ur Cfm-mCnc 212 >=50 ng/mL POSITIVE Synthetic Stimulants Ur Ql Cfm <1 >=1 ng/mL NONE DETECTED GANG DRILL OPERATOR Not Otherwise Specified Ur Ql Cfm <1 >=1 ng/mL NONE DETECTED Synthetic Cannabinoids Ur Ql Cfm <1 >=1 ng/m L NONE DETECTED Hallucinogens/Dissociatives Ur Ql Cfm <1 >=1 ng/mL NONE DETECTED Timber Estimator Benzodiazepines Ur Ql Cfm <1 >=1 ng/mL NONE DETECTED Timber Estimator Opioids Ur Ql Cfm <1 >=1 ng/mL N ONE DETECTED THC Ur Ql Scn <20 >=20 ng/mL NONE DETECTED [place] Profil e Reviewed date:12/14/2024 03:02:40 PM Interpretation: Performing Lab:[facility] (CLIA#: [id number]), [address] [place] [address], Director - Marialuisa Roland Notes/Report: Analyzed at [facility] (CLIA#: [id number]) - [address] [place] [address] - Showroom Sales Assistant: Marialuisa Perez Certifying Gas Meter Mechanic: Andra Gonzalez (Remote [id number]) These tests were developed and their performance characteristics determined by [facility]. They have not been cleared or approved by the [place] Food and Drug Administration. Buspirone Ur CMP <25 >=25 ng/mL NON-COMPLIA NT: Test result indicates patient may not be taking drug prescribed. Venlafaxine Ur CMP 175 >=5 ng/mL COMPLIANT : Test result is consistent and expected with prescribed drug. Cyclobenzaprine Ur CMP 665 >=10 ng/mL COMPL IANT: Test result is consistent and expected with prescribed drug. Pregabalin Ur CMP 19 >=5 mcg/mL COMPLIANT: Test result is consistent and expected with prescribed drug. Oxycodone Ur CMP 124 >=100 ng/mL COMPLIANT: Test result is consistent and expected with prescribed drug. BioDetect EXPECTED Test result is consistent with routinely analyzed human urine. 6MAM Ur Ql Cfm <10 >=10 ng/mL NONE DETECTED Amphetamines Ur Ql Cfm <100 >=100 ng/mL NONE DETECTED Benzodiaz Ur Ql Cfm <50 >=50 ng/mL NONE DET ECTED Buprenorphine Ur Ql Cfm <1 >=1 ng/mL NONE DETECTED BZE Ur Ql Cfm <50 >=50 ng/mL NONE DETECTED Fentanyl+Norfentanyl Ur Ql Cfm <5 >=5 ng/mL NONE DETECTED Gabapentin Ur Ql <5 >=5 mcg/mL NONE DETECT ED Carisoprodol+Meprob Ur Ql Scn <200 >=200 ng/mL NONE DETECTED Methadone Ur Ql Cfm <200 >=200 ng/mL NONE DET ECTED Meperidine Ur Ql Cfm <100 >=100 ng/mL NONE DE TECTED Opiates Ur Ql Cfm >=100 >=100 ng/mL POSITIVE Noroxycodone Ur Cfm-mCnc 124 >=100 ng/mL POS ITIVE Pregabalin(Lyrica) Ur Ql Cfm >=5 >=5 mcg/mL POSITIVE Pregabalin Ur Cfm-mCnc 19 >=5 mcg/mL POSIT MAXIMUS Tramadol Ur Ql Cfm <100 >=100 ng/mL NONE DETE CTED Creat Ur-mCnc 33.5 20 - 370 mg/dL NORMAL Creatinine and pH are performed for specimen validity and not diagnostic purposes. pH Ur 7.02 4.5 - 9.0 NORMAL Creatinine and pH are performed for specimen validity and not diagnostic purposes. Alcohol Metabolites Ur Ql Cfm <200 >=200 ng/mL NONE DETECTED Ethyl sulfate Ur Cfm-mCnc <200 >=200 ng/mL NO NE DETECTED Busprione Ur Ql Cfm <25 >=25 ng/mL NONE DET ECTED Cyclobenzaprine Ur Ql >=10 >=10 ng/mL POSITI VE Cyclobenzaprine Ur Cfm-mCnc 561 >=10 ng/mL POSITIVE Norcyclobenzapr Ur Cfm-mCnc 103 >=10 ng/mL POSITIVE SN Reuptake Inhibitors Ur Ql >=5 >=5 ng/mL POSITIVE ODV Ur Cfm-mCnc 175 >=50 ng/mL POSITIVE Synthetic Stimulants Ur Ql Cfm <1 >=1 ng/mL NONE DETECTED GANG DRILL OPERATOR Not Otherwise Specified Ur Ql Cfm <1 >=1 ng/mL NONE DETECTED Synthetic Cannabinoids Ur Ql Cfm <1 >=1 ng/m L NONE DETECTED Hallucinogens/Dissociatives Ur Ql Cfm <1 >=1 ng/mL NONE DETECTED Timber Estimator Benzodiazepines Ur Ql Cfm <1 >=1 ng/mL NONE DETECTED Timber Estimator Opioids Ur Ql Cfm <1 >=1 ng/mL N ONE DETECTED THC Ur Ql Scn <20 >=20 ng/mL NONE DETECTED Reason For Referral No Information Medications Medication SIG (Take, Route, Frequency, Duration) Notes Start Date End Date Status Lisinopril 40 MG Oral; Duration: 90 Days Active Cyclobenzaprine HCl 10 mg TAKE 1 TABLET EVERY 8 HOURS Active Venlafaxine HCl ER 37.5 MG TAKE 1 CAPSUL E BY MOUTH DAILY WITH FOOD; Duration: 30 Active oxyCODONE-Acetaminophen 7.5-325 MG 1 tablet as needed Oral twice a day; Duration: 30 days DO NOT FILL UNTIL 07/20/25 07/19/2025 Active Pregabalin 150 MG 1 capsule Orally three times a day; Duration: 30 days 06/20/2025 Active hydroCHLOROthiazide 12.5 MG TAKE 1 TABLE T BY MOUTH DAILY Oral; Duration: 90 Days Active Problems Problem Type SNOMED Code ICD Code Onset Dates Problem Status W/U Status Risk Notes Problem Obesity (343813279) Other obesity (E66.8) Active confirmed Problem Long-term current use of drug therapy (149435022) Other police patrol officer (current) drug therapy (Z79.899) Active confirmed Problem Lumbar radiculopathy (520508911) Lumbar radiculopathy (M54.16) Active confirmed Problem Lumbar post-laminectomy syndrome (687358885) Lumbar postlaminectomy syndrome (M96.1) Active confirmed Problem Status post insertion of spinal cord stimulator (Z96.89) Active confirmed Problem Obesity (448895499) Obesity (E66.9) Active confirmed Problem Pain in thoracic spine (098555041) Thoracic spine pain (M54.6) Active confirmed Problem Pain in lumbar spine (finding) (205779484) Lumbar spine pain (M54.50) Active confirmed Problem Hypertension (46191167) Hypertension (I10) 03/03/20 20 Active confirmed Problem Pain in left foot (330276901407110 ) Left foot pain (M79.672) Active confirmed Vital Signs Heart Rate 86 /min 08/18/2025 Height-cm 175.26 cm 08/18/2025 Blood pressure diastolic 85 mm Hg 08/18/2025 Weight-kg 77.11 kg 08/18/2025 Height 5ft 9in in 08/18/2025 Blood pressure systolic 150 mm Hg 08/18/2025 Weight 170 lbs 08/18/2025 BMI 25.1 kg/m2 08/18/2025 Encounters Encounter Location Date Provider Diagnosis [facility] [address] [place] [phone] 09/28/2024 Indira Pizarro Lumbar spine pain M54.50 ; Lumbar radiculopathy M54.16 ; Status post insertion of spinal cord stimulator Z96.89 ; Battery end of life of spinal cord stimulator Z45.42 and On police patrol officer drug therapy Z79.899 [facility] [address] [place] [address] 11/15/2024 Indira Pizarro Lumbar radiculopathy M54.16 ; Lumbar spine pain M54.50 ; Status post insertion of spinal cord stimulator Z96.89 ; Lumbar postlaminectomy syndrome M96.1 and On fdc drug therapy Z79.899 [facility] [address] [place] [phone] 12/13/2024 Indira Pizarro Lumbar radiculopathy M54.16 ; Lumbar spine pain M54.50 ; Status post insertion of spinal cord stimulator Z96.89 ; Lumbar postlaminectomy syndrome M96.1 and On fdc drug therapy Z79.899 [facility] [address] [place] [address] [address] [place] [address] 01/18/2025 Indira Pizarro Lumbar radiculopathy M54.16 ; Lumbar spine pain M54.50 ; Status post insertion of spinal cord stimulator Z96.89 ; Lumbar postlaminectomy syndrome M96.1 ; Hypertension I10 and Left foot pain M79.672 [facility] [address] [place] [address] [address] [place] [address] 01/18/2025 Prashanth Parson [facility] [address] [place] [address] [address] [place] [address] 02/15/2025 Indira Pizarro Lumbar radiculopathy M54.16 ; Status post insertion of spinal cord stimulator Z96.89 ; Lumbar postlaminectomy syndrome M96.1 ; On police patrol officer drug therapy Z79.899 and Displacement of intervertebral disc of lumbar spine without radiculopathy M51.26 [facility] [address] [place] [address] [address] [place] [address] 03/17/2025 Indira Pizarro Lumbar radiculopathy M54.16 ; Lumbar spine pain M54.50 ; Status post insertion of spinal cord stimulator Z96.89 ; Lumbar postlaminectomy syndrome M96.1 ; Hypertension I10 ; Obesity E66.9 and Left foot pain M79.672 [facility] [address] [place] [address] [address] [place] [address] 04/18/2025 Indira Pizarro Lumbar radiculopathy M54.16 ; Lumbar spine pain M54.50 ; Status post insertion of spinal cord stimulator Z96.89 ; Lumbar postlaminectomy syndrome M96.1 ; Hypertension I10 and On fdc drug therapy Z79.899 [facility] [address] [place] [address] [address] [place] [address] 05/16/2025 Eli Quinteros Other obesity E66.8 ; Lumbar radiculopathy M54.16 ; Status post insertion of spinal cord stimulator Z96.89 ; Lumbar postlaminectomy syndrome M96.1 ; Hypertension I10 ; Obesity E66.9 ; Left foot pain M79.672 and Lumbar spine pain M54.50 [facility] [address] [facility] [address] [place] [address] 06/20/2025 Eli Marstall Lumbar radiculopathy M54.16 ; Lumbar postlaminectomy syndrome M96.1 ; Status post insertion of spinal cord stimulator Z96.89 ; Lumbar spine pain M54.50 ; Thoracic spine pain M54.6 and Other fdc (current) drug therapy Z79.899 [facility] [address] [facility] [address] [place] [address] 07/19/2025 Eli Marstall Lumbar radiculopathy M54.16 ; Lumbar postlaminectomy syndrome M96.1 ; Status post insertion of spinal cord stimulator Z96.89 ; Hypertension I10 and residential use of drug Z79.899 [facility] [address] [facility] [address] [place] [address] 08/18/2025 Eli Marstall Lumbar postlaminectomy syndrome M96.1 ; Status post insertion of spinal cord stimulator Z96.89 ; Lumbar spine pain M54.50 ; Lumbar radiculopathy M54.16 and Other fdc (current) drug therapy Z79.899 [facility] [address] [facility] [address] [place] [address] 09/28/2024 Odette Parson [facility] [address] [facility] [address] [place] [address] 11/15/2024 Odette Parson [facility] [address] [facility] [address] [place] [address] 12/13/2024 Odette Parson [facility] [address] [facility] [address] [place] [address] 01/11/2025 Odette Parson [facility] [address] [facility] [address] [place] [address] 01/13/2025 Prashanth Parson [facility] [address] [facility] [address] [place] [address] 01/18/2025 Odette Parson [facility] [address] [place] [address] 02/15/2025 Odette Eb [facility] [address] [place] [address] 03/17/2025 Odette Eb [facility] [address] [place] [address] 04/18/2025 Odette Eb [facility] [address] [place] [address] 05/16/2025 Prashanth Eb [facility] [address] [place] [address] 05/20/2025 Prashanth Eb [facility] [address] [place] [address] 06/20/2025 Prashanth Eb [facility] [address] [place] [address] 07/19/2025 Prashanth Eb [facility] [address] [place] [address] 08/18/2025 Prashanth Eb Assessments Encounter Date Diagnosis (ICD Code) Assessment Notes Treatment Notes Treatment Clinical Notes Section Notes 09/28/2024 Lumbar radiculopathy (ICD-10 - M54.16) 09/28/2024 Lumbar spine pain (ICD-10 - M54.50) Refill for controlled substance sent to supervising physician to be filled Continue home stretching and at home exercise program as tolerated Follow-up in one month for med check, sooner if needed 11/15/2024 Lumbar radiculopathy (ICD-10 - M54.16) 11/15/2024 Lumbar spine pain (ICD-10 - M54.50) Refill for controlled substance sent to supervising physician to be filled Continue home stretching and at home exercise program as tolerated Follow-up in one month for med check, sooner if needed 12/13/2024 Lumbar radiculopathy (ICD-10 - M54.16) Refill for controlled substance sent to supervising physician to be filled to come next visit to discuss SCS battery Continue home stretching and at home exercise program as tolerated Follow-up in one month for med check, sooner if needed 12/13/2024 Lumbar spine pain (ICD-10 - M54.50) 01/18/2025 Lumbar radiculopathy (ICD-10 - M54.16) Refill for controlled substance sent to supervising physician to be filled Discussed starting PT, patient going to contact us when he find place close to home that will work for him. Continue home stretching and at home exercise program as tolerated Follow-up in one month for med check, sooner if needed 01/18/2025 Lumbar spine pain (ICD-10 - M54.50) 02/15/2025 Lumbar radiculopathy (ICD-10 - M54.16) Refill for controlled substance sent to supervising physician to be filled Patient to start PT with [facility] Continue home stretching and at home exercise program as tolerated Follow-up in one month for med check, sooner if needed 02/15/2025 Status post insertion of spinal cord stimulator (ICD-10 - Z96.89) 03/17/2025 Lumbar radiculopathy (ICD-10 - M54.16) 03/17/2025 Lumbar spine pain (ICD-10 - M54.50) Refill for controlled substance sent to supervising physician to be filled Continue home stretching and at home exercise program as tolerated Follow-up in one month for med check, sooner if needed 04/18/2025 Lumbar radiculopathy (ICD-10 - M54.16) 04/18/2025 Lumbar spine pain (ICD-10 - M54.50) Refill for controlled substance sent to supervising physician to be filled Patient to continue PT, update us with any news of progress with Dr. Carrillo office and SCS Continue home stretching and at home exercise program as tolerated Follow-up in one month for med check, sooner if needed 05/16/2025 Other obesity (ICD-10 - E66.8) 06/20/2025 Lumbar radiculopathy (ICD-10 - M54.16) 06/20/2025 Lumbar postlaminectomy syndrome (ICD-10 - M96.1) Prescription for controlled substance sent to supervising physician for renewal 07/19/2025 Lumbar radiculopathy (ICD-10 - M54.16) 07/19/2025 Lumbar postlaminectomy syndrome (ICD-10 - M96.1) Prescription for controlled substance sent to supervising physician for renewal 08/18/2025 Lumbar postlaminectomy syndrome (ICD-10 - M96.1) Prescription for controlled substance sent to supervising physician for renewal seeing Dr Carrillo for IPG battery revision 08/18/2025 Status post insertion of spinal cord stimulator (ICD-10 - Z96.89) 01/18/2025 Status post insertion of spinal cord stimulator (ICD-10 - Z96.89) 07/19/2025 Status post insertion of spinal cord stimulator (ICD-10 - Z96.89) email and call to Viky Kong with Dr Carrillo office to try to get patient scheduled for IPG battery replacement. He now is reading error code and not holding a charge. His has been trying for a year to get an appointment made to look at IPG replacement. 06/20/2025 Status post insertion of spinal cord stimulator (ICD-10 - Z96.89) scheduling with Dr Merino for IPG battery revision consult. 05/16/2025 Lumbar radiculopathy (ICD-10 - M54.16) 04/18/2025 Status post insertion of spinal cord stimulator (ICD-10 - Z96.89) 03/17/2025 Status post insertion of spinal cord stimulator (ICD-10 - Z96.89) 02/15/2025 Lumbar postlaminectomy syndrome (ICD-10 - M96.1) 12/13/2024 Status post insertion of spinal cord stimulator (ICD-10 - Z96.89) 11/15/2024 Status post insertion of spinal cord stimulator (ICD-10 - Z96.89) 09/28/2024 Status post insertion of spinal cord stimulator (ICD-10 - Z96.89) 11/15/2024 Lumbar postlaminectomy syndrome (ICD-10 - M96.1) 09/28/2024 Battery end of life of spinal cord stimulator (ICD-10 - Z45.42) 12/13/2024 Lumbar postlaminectomy syndrome (ICD-10 - M96.1) 01/18/2025 Lumbar postlaminectomy syndrome (ICD-10 - M96.1) 03/17/2025 Lumbar postlaminectomy syndrome (ICD-10 - M96.1) 02/15/2025 On police patrol officer drug therapy (ICD-10 - Z79.899) 04/18/2025 Lumbar postlaminectomy syndrome (ICD-10 - M96.1) 05/16/2025 Status post insertion of spinal cord stimulator (ICD-10 - Z96.89) 07/19/2025 Hypertension (ICD-10 - I10) 08/18/2025 Lumbar spine pain (ICD-10 - M54.50) 06/20/2025 Lumbar spine pain (ICD-10 - M54.50) 08/18/2025 Lumbar radiculopathy (ICD-10 - M54.16) 05/16/2025 Lumbar postlaminectomy syndrome (ICD-10 - M96.1) Prescription for controlled substance sent to supervising physician for renewal working with [facility] and for approval for IPG battery revision/replac ement 04/18/2025 Hypertension (ICD-10 - I10) 06/20/2025 Thoracic spine pain (ICD-10 - M54.6) 07/19/2025 digital art director use of drug (ICD-10 - Z79.899) 03/17/2025 Hypertension (ICD-10 - I10) 02/15/2025 Displacement of intervertebral disc of lumbar spine without radiculopathy (ICD-10 - M51.26) 01/18/2025 Hypertension (ICD-10 - I10) 12/13/2024 On fdc drug therapy (ICD-10 - Z79.899) 11/15/2024 On police patrol officer drug therapy (ICD-10 - Z79.899) 09/28/2024 On fdc drug therapy (ICD-10 - Z79.899) 01/18/2025 Left foot pain (ICD-10 - M79.672) RICE treatment Discussed PT. Can send referral to ortho or podiatry if symptoms would worsen/continue . 03/17/2025 Obesity (ICD-10 - E66.9) 04/18/2025 On police patrol officer drug therapy (ICD-10 - Z79.899) 05/16/2025 Hypertension (ICD-10 - I10) 08/18/2025 Other police patrol officer (current) drug therapy (ICD-10 - Z79.899) 06/20/2025 Other police patrol officer (current) drug therapy (ICD-10 - Z79.899) 05/16/2025 Obesity (ICD-10 - E66.9) 03/17/2025 Left foot pain (ICD-10 - M79.672) 05/16/2025 Left foot pain (ICD-10 - M79.672) 05/16/2025 Lumbar spine pain (ICD-10 - M54.50) 11/15/2024 Other Body Mass Index: Care Instructions material was published, High Blood Pressure: Care Instructions material was published 12/13/2024 Other Body Mass Index: Care Instructions material was published, High Blood Pressure: Care Instructions material was published, Learning About How to Have a Healthy Back material was published 01/18/2025 Other Body Mass Index: Care Instructions material was published, High Blood Pressure: Care Instructions material was published 01/18/2025 Other Patient is a 49-year-old male who is present for x-ray today left foot. Three-view images of left foot show no obvious fractures. Patient does have what appears to be a sesamoid at the first metatarsal tarsal joint. Patient has bunion formation left first toe. No to metastases or fractures seen. 02/15/2025 Other Body Mass Index: Care Instructions material was published, High Blood Pressure: Care Instructions material was published 03/17/2025 Other Body Mass Index: Care Instructions material was published, High Blood Pressure: Care Instructions material was published 04/18/2025 Other Body Mass Index: Care Instructions material was published, High Blood Pressure: Care Instructions material was published 05/16/2025 Other Body Mass Index: Care Instructions material was published 06/20/2025 Other Body Mass Index: Care Instructions material was published, High Blood Pressure: Care Instructions material was published 4v lumbar xray: surgical clips RUQ, SCS leads, lumbar fusion hardware intact. lateral spurring L4. INTERMEDIATE L4/5, L5/S1. anterior endplate spurring L4. SCS battery and leads. slight retrolisthesis L1 on L2, L2 on L3, L3 on L4 that worsens slightly with extension. no tumor, mass or fracture. 2 v thoracic: no scoliosis. right sided hyperostosis. SCS leads T8 and T9. no scoliosis. kyphosis. anterior spurring, fishmouth changes thoracic spine. no tumor, mass or fracture. 07/19/2025 Other Body Mass Index: Care Instructions material was published, High Blood Pressure: Care Instructions material was published 08/18/2025 Other High Blood Pressure: Care Instructions material was published Plan Of Treatment Pending Test Test Name Order Date X ray : Thoracic spine 2 views X ray : Foot, left 3 views 01/18/2025 X ray : Spines, lumbar 4 views EtS (Alcohol Metabolite) - Urine 025 EtS (Alcohol Metabolite) - Urine 025 EtS (Alcohol Metabolite) - Urine 025 EtS (Alcohol Metabolite) - Urine 024 EtS (Alcohol Metabolite) - Urine 025 QMP Plus D/L - Urine 11/15/2024 QMP Plus D/L - Urine 08/30/2024 QMP Plus D/L - Urine 02/15/2025 QMP Plus D/L - Urine 08/18/2025 QMP Plus D/L - Urine 05/16/2025 Synthetic Stimulants 05/16/2025 Synthetic Stimulants 08/18/2025 Synthetic Stimulants 02/15/2025 Synthetic Stimulants 11/15/2024 Synthetic Stimulants 08/30/2024 Timber Estimator Benzodiazepines 08/30/2024 Timber Estimator Benzodiazepines 02/15/2025 Timber Estimator Benzodiazepines 11/15/2024 Timber Estimator Benzodiazepines 08/18/2025 Timber Estimator Benzodiazepines 05/16/2025 Synthetic Cannabinoids 05/16/2025 Synthetic Cannabinoids 08/18/2025 Synthetic Cannabinoids 11/15/2024 Synthetic Cannabinoids 02/15/2025 Synthetic Cannabinoids 08/30/2024 Timber Estimator Opioids 08/30/2024 Timber Estimator Opioids 11/15/2024 Timber Estimator Opioids 02/15/2025 Timber Estimator Opioids 08/18/2025 Timber Estimator Opioids 05/16/2025 Hallucinogens/Dissociatives 02/15/2025 Hallucinogens/Dissociatives 05/16/2025 Hallucinogens/Dissociatives 08/18/2025 Hallucinogens/Dissociatives 11/15/2024 Hallucinogens/Dissociatives 08/30/2024 GANG DRILL OPERATOR Other 08/30/2024 GANG DRILL OPERATOR Other 11/15/2024 GANG DRILL OPERATOR Other 02/15/2025 GANG DRILL OPERATOR Other 08/18/2025 GANG DRILL OPERATOR Other 05/16/2025 Marijuana - Urine 05/16/2025 Marijuana - Urine 08/18/2025 Marijuana - Urine 02/15/2025 Marijuana - Urine 08/30/2024 Marijuana - Urine 11/15/2024 PainComp Medication Compliance - Urine 1 PainComp Medication Compliance - Urine 0 02/15/2025 PainComp Medication Compliance - Urine 0 11/15/2024 PainComp Medication Compliance - Urine 1 PainComp Medication Compliance - Urine 0 05/16/2025 Aegis Required Information 05/16/2025 Aegis Required Information 02/15/2025 Aegis Required Information 08/18/2025 Aegis Required Information 11/15/2024 Aegis Required Information 08/30/2024 Next Appt Details Provider Name:Eli gil, 09/15/2025 09:30:00 AM, [id number] [place] [address], [address], [address], Insurance Providers Payer Name Payer Address Payer Phone Subscriber Number Group Number Insured Name Patient Relationship to Insured Coverage Start Date Coverage End Date [facility] [address] [place] [address] [id number] Kashmir Berrios Self - patient is the insured 4 Medical (General) History Medical History History ICD Code hypertension Prediabetic depression anxiety GERD Surgical History Surgery Date(Month/Year) appendectomy 1990 left shoulder arthroscopy and sub acromi al decompression 2008 right shoulder arthroscopy w ith limited debridement of a partial thick rotator cuff tear and sub acromial decompression 2010 Lumbar fusion L4-S1 2012 B CTS 2009 left knee arthroscopy and cracked knee c ap repair 2013 right rotator cuff tear 2016 R rotator cuff repair; infection- debrid ement; PICC line 2019 SCS placed 2017 Hospitalization History Reason Date(Month/Year) no hospitalizations since prior visit
--- OUTSIDE RECORDS SUMMARY | 2025-09-13 15:07 | XMS_ITS | Clinical Summary ---
Author Organization [facility] Address [address] [place] [phone] Phone Care Team Providers Care Test Technician Name Role Phone Gregor Pacheco MD Primary Care Provider Allergies No known active allergies Medications pravastatin (PRAVACHOL) 20 mg Oral tablet Take 20 mg by mouth Daily LATE. Active gabapentin (NEURONTIN) 100 mg Oral tablet Take 100 mg by mouth 3 times daily. Active lisinopril (PRINIVIL) 10 mg tablet Take 10 mg by mouth daily. Active cyclobenzaprine (FLEXERIL) 10 mg tablet Take 10 mg by mouth 3 times daily as needed for Spasm. Active diazepam (VALIUM) 5 mg tablet Take 1 Tab by mouth every 6 hours as needed (spasm ). 20 Tab None 12/23/2013 Active oxyCODONE-acetam inophen (PERCOCET) 5-325 mg tablet Take 1-2 Tabs by mouth every 4 hours as needed for Pain. 30 Tab None 12/23/2013 Active Active Problems Problem Noted Date Diagnosed Date Degenerative lumbar disc 07/09/2012 Family History Medical History Relation Name Comments Diabetes Father Heart Disease Father High Cholesterol Father Hypertension Father Kidney Disease Father Stroke Father Relation Name Status Comments Father Alive Mother Alive Social History Tobacco Use Types Packs/Day Years Used Date Smoking Tobacco: Never Alcohol Use Standard Drinks/Week Comments No 0 (1 standard drink = 0.6 oz pur e alcohol) Sex and Gender Information Value Date Recorded Sex Assigned at Not on file Legal Sex Male 5:51 AM FLAT EXAMINER Gender Identity Not on file Sexual Orientation Not on file Occupation Industry Job Start Date Job End Date Not on file Not on file Not on file Not on file Last Filed Vital Signs Vital Sign Reading Time Taken Comments Blood Pressure 121/77 12/23/2013 5:08 PM FLAT EXAMINER Pulse 61 12/23/2013 2:24 PM FLAT EXAMINER Temperature 36.9 C (98.4 F) 12/23/2013 12:10 PM FLAT EXAMINER Respiratory Rate 20 12/23/2013 5:08 PM FLAT EXAMINER Oxygen Saturation 99% 12/23/2013 5:08 PM FLAT EXAMINER Inhaled Oxygen Concentration - - Weight 108.9 kg (240 lb) 12/23/2013 12:10 PM FLAT EXAMINER Height 172.7 cm (5' 8) 12/23/2013 12:10 PM FLAT EXAMINER Body Mass Index 36.49 12/23/2013 12:10 PM FLAT EXAMINER Plan of Treatment Health Maintenance Due Date Last Done Comments DTAP/TDAP/TD VACCINES (1 - Tdap) 1995 HEPATITIS B VACCINES (1 of 3 - 19+ 3-dose series) 06/1995 COLORECTAL SCREENING 2021 Colorectal Cancer Screening 2021 FIT-DNA Q 3 years 2021 FIT/FOBT Q 1 year 2021 Flex Sig/CT Colonography Q 5 years 2021 INFLUENZA VACCINE (#1) 2025 Insurance BS BLUE ACCESS/TRUE BLUE PPO Advance Directives For more information, please contact: [phone] * Full Code (Latest Code Status on File) Date Activated Date Inactivated Comments 01/05/2010 9:44 AM 01/05/2010 6:17 PM * Full Code Date Activated Date Inactivated Comments 12/22/2009 9:45 AM 12/22/2009 6:12 PM * Full Code Date Activated Date Inactivated Comments 12/22/2009 7:08 AM 12/22/2009 9:45 AM Care Teams Test Technician Relationship Specialty Start Date End Date Gregor Pacheco MD PCP - General 12/15/09
--- OUTSIDE RECORDS SUMMARY | 2025-09-13 15:07 | XMS_ITS | Clinical Summary ---
Author Organization [facility] Address [address] [place] [address] Care Team Providers Care Accelerator Operator Name Role Phone Cory Gomez Primary Care Provider [phone] Allergies Active Allergy Reactions Criticality Noted Date Comments Statins Other (see comment) 11/03/2019 kidney failure Medications oxyCODONE ER (OXYCONTIN) 10 MG 12 hr abuse-deterrent tabletIndicatio ns:Chronic Pain Take 10 mg by mouth every 12 (twelve) hours as needed. Indications: Chronic Pain 9 Active cyclobenzaprine 10 MG tabletIndicatio ns:Muscle Spasm Take 10 mg by mouth 3 (three) times daily as needed. Indications: Muscle Spasm Active docusate sodium (DOK) 100 MG capsuleIndicati ons:Constipatio n Take 100 mg by mouth 2 (two) times daily as needed. Indications: Constipation Active busPIRone 10 MG tabletIndicatio ns:Anxiety Take 10 mg by mouth 2 (two) times daily. Indications: Feeling Anxious 9 Active lisinopril 10 MG tabletIndicatio ns:Hypertension Take 10 mg by mouth daily. Indications: High Blood Pressure Disorder Active pregabalin 150 MG capsuleIndicati ons:Pain, not elsewhere classified Take 150 mg by mouth 2 (two) times daily. Indications: Pain, not elsewhere classified Active esomeprazole (NEXIUM) 40 MG capsuleIndicati ons:Heartburn Take 40 mg by mouth every morning before breakfast. Indications: Heartburn Active amitriptyline 50 MG tabletIndicatio ns:Depression Take 50 mg by mouth nightly at bedtime. Indications: Depression 9 Active Social History Tobacco Use Types Packs/Day Years Used Date Smoking Tobacco: Never Assessed Sex and Gender Information Value Date Recorded Sex Assigned at Not on file Legal Sex Male 8:54 AM CLINIC RECEPTIONIST Gender Identity Not on file Sexual Orientation Not on file Last Filed Vital Signs Vital Sign Reading Time Taken Comments Blood Pressure 132/84 11/10/2019 11:52 AM CLINIC RECEPTIONIST Pulse 88 11/10/2019 11:52 AM CLINIC RECEPTIONIST Temperature 36.1 C (96.9 F) 11/10/2019 11:52 AM CLINIC RECEPTIONIST Respiratory Rate 20 11/10/2019 11:52 AM CLINIC RECEPTIONIST Oxygen Saturation 98% 11/10/2019 11:52 AM CLINIC RECEPTIONIST Inhaled Oxygen Concentration - - Weight 124.7 kg (275 lb) 11/02/2019 2:45 PM CLINIC RECEPTIONIST Height 175.3 cm (5' 9) 11/02/2019 2:45 PM CLINIC RECEPTIONIST Body Mass Index 40.61 11/02/2019 2:45 PM CLINIC RECEPTIONIST Plan of Treatment Health Maintenance Due Date Last Done Comments Colorectal Cancer Screening Colonoscopy (10 Years) 1976 Annual Physical 1979 Hepatitis C 1994 DTaP, Tdap and Td Vaccines ( 1 - Tdap) 1995 Hepatitis B Vaccines (1 of 3 - 19+ 3-dose series) 1995 COVID-19 Vaccine (2024-2 6 season) 2025 Influenza Adult (#1) 2025 Hepatitis A Vaccines Aged Out No long er eligible based on patient's age to complete this topic Meningococcal B Vaccine Aged Out No l onger eligible based on patient's age to complete this topic Meningococcal Vaccine Aged Out No adis keegan eligible based on patient's age to complete this topic Pneumococcal Vaccine: Pediat rics (0 to 5 Years) and At-Risk Patients (6 to 49 Years) Aged Out No longer eligible b ased on patient's age to complete this topic RSV Immunizations Under 20 Months Aged Out No longer eligible based on patient's age to complete this topic Insurance [facility] Advance Directives * Full Code (Latest Code Status on File) Date Activated Date Inactivated Comments 11/16/2019 9:36 AM Care Teams Accelerator Operator Relationship Specialty Start Date End Date Cory Gomez DO [address] [place] [address] PCP - General INTERNAL MEDICINE 11/01/19
== END 2025-09-13 14:59 | disposition home or self-care (01) ==
PROVIDERS: PCP Clinical Nurse Specialist; Visit Provider Surgery
DX: M62.08 Separation of muscle (nontraumatic), other site (principal)
CPT/HCPCS: 74176

== ENCOUNTER 2025-10-10 07:55 | Outpatient (CLI) | payer BC, SELFPAY ==
--- NOTE | 2025-10-10 08:30 | ECG_ITS ---
Test Date: 2025-10-10 08:40:57 Measurements Intervals [place] Rate: 74 P: -7 [place]: 320 QRS: 17 QRSD: 116 T: 43 QT: 376 QTc: 418 Interpretive Statements SINUS RHYTHM INCOMPLETE RIGHT BUNDLE BRANCH BLOCK BASELINE ARTIFACT- II, III, AVR, AVL, AVF, V1-V6 BORDERLINE ECG No previous ECG available for comparison Electronically Signed On 10-10-2025 11:35:58 HIM MANAGER by Gian Lucero D.O.
== END 2025-10-10 07:56 | disposition home or self-care (01) ==
LOC: ANHCARD 07:57
PROVIDERS: PCP Clinical Nurse Specialist; Visit Provider Clinical Nurse Specialist
DX: Z01.818 Encounter for other preprocedural examination (principal); I45.10 Unspecified right bundle-branch block
CPT/HCPCS: 93005

== ENCOUNTER 2025-10-17 13:55 | Outpatient (CLI) | payer BC, SELFPAY | END 2025-10-17 13:56 | disposition home or self-care (01) | LOC: ANHAUDIO 13:55 | PROVIDERS: PCP Clinical Nurse Specialist; Visit Provider Otolaryngology | DX: H90.3 Sensorineural hearing loss, bilateral (principal) | CPT/HCPCS: 92553; 92555; 92567 ==